=== PATIENT | male | born 1965 | race Caucasian/White ===

== ENCOUNTER 2024-01-16 02:34 | Emergency (ER) | payer OTHER, SELFPAY ==
[2024-01-16 02:49] VITALS: BP 138/91
[2024-01-16] MEDS: DUONEB 3 ML INH (03:09)
[2024-01-16 03:22] VITALS: BMI 28.5
--- NOTE | 2024-01-16 03:52 | ED.GENMED ---
History of Present Illness
General
Chief Complaint: Breathing Problem
Source: patient
Exam Limitations: none
Time Seen by Provider: 01/16/24 03:44
History of Present Illness
History of Present Illness:
This is a 58 year old male that comes in with c/o asthma attack. States that he ran out of his albuterol inhaler and his Advair. States that they told him he has to use the generic of Advair but there is no generic. States that he felt SOB and was
wheezing. States that he also felt a little nauseated due to the mucous. Denies any fever, chills, chest pain, abd pain, vomiting, diarrhea, headache, dizziness, urinary burning.
Past History
Past History
ED Past Medical History: Asthma, HTN, Hypercholesterolemia and NIDDM
ED Past Surgical History: Appendectomy
Social History
Tobacco: Smoker
Alcohol: Occasional
Personal:
Living: with family
Employment: Employed
Family History
Family History: Negative Hypertension or CAD
Review of Systems
Review of Systems
All Other Systems: ROS reviewed and negative except as documented in HPI and ROS
Constitutional: Reports no symptoms; Denies fever or chills
EENT: Reports no symptoms
Respiratory: Reports trouble breathing (Wheezing); Denies cough
Cardiac: Reports no symptoms
ABD/GI: Reports nausea; Denies abdominal pain, vomiting or diarrhea
: Denies dysuria, frequency or urgency
Musculoskeletal: Reports no symptoms
Skin: Reports no symptoms
Neurological: Reports no symptoms; Denies dizzy or headache
Psychiatric: Reports no symptoms
Phy Exam
General Physical Exam
General Presentation: no apparent distress
General age: appears stated age
General Skin: warm and dry
General Habitus: normal
General Mental: alert
General Hydration: appears well hydrated
ENT Exam
ENT Exam: TM's normal, pharynx normal and neck supple
Eye Exam
Eye Exam: EOMI
Cardiovascular Exam
Cardiovascular Exam: regular rate/rhythm, no murmur and normal peripheral pulses
Pulmonary Exam
Pulmonary Exam: no respiratory distress, no rales, chest non tender, no crackles, no rhonchi, no cough and other (Very faint exp wheezing)
Musculoskeletal Exam
Musculoskeletal Exam: full ROM
Skin Exam
Skin Exam: normal color, warm/dry, no rash and no petechia
Psychiatric Exam
Psychiatric Exam: normal mood/affect
Scores
Heart Failure Risk
Heart Failure Risk Score: Not Applicable
Course
Orders/Labs/Results
Orders:
Orders
01/16/24 03:07
Ipratropium/Albuterol Sulfate [Duoneb] 3 ml .ROUTE .STK-MED ONE
01/16/24 03:09
Ipratropium/Albuterol Sulfate [Duoneb] 3 ml INH R NOW ONE
Vital Signs
Initial and Last Documented VS:
Initial Vital Signs
Temp Pulse Resp BP Pulse Ox
97.5 F 70 20 138/91 93
01/16/24 02:49 01/16/24 02:49 01/16/24 02:49 01/16/24 02:49 01/16/24 02:49
Last Documented Vital Signs
Temp Pulse Resp BP Pulse Ox
97.5 F 70 20 138/91 97
01/16/24 02:49 01/16/24 02:49 01/16/24 02:49 01/16/24 02:49 01/16/24 03:15
MDM/Problems Addressed
Differential Diagnosis Includes:
Asthma attack
MDM/Problems Addressed:
This is a 58 year old male that comes in with c/o asthma attack. State that he was wheezing. States that he ran out of his Albuterol inhaler and his Advair inhaler.
Patient has a duo neb and is feeling much better. Will order his Albuterol inhaler and place patient on steroids to for the next 4 days. Encouraged patient to increase his water intake to 8-8oz glasses daily. Follow up with the family doctor. Return
with any concerns.
Chronic conditions affecting care: Asthma
Acute Exacerbation and/or Progression of Chronic Illness: Asthma
*Pulse Oximetry
Patient hypoxic: no
*EKG
Interpreted by ED Provider?: NA
Rate: EKG- N/A
*Psychometrician Interpretation
Rate: Psychometrician- N/A
*Critical Care Note
Total Time (30-74mins, 75-104mins- exclusive of procedures): Not Applicable
ED Attending Note
-
Portions of this chart may have been created with voice recognition software.� Occasional wrong word or��sound alike� substitutions may have occurred due to the inherent limitations of voice recognition software.
Discharge Plan
Departure
Patient Disposition: Home (Routine Discharge)
Date of Disposition: 01/16/24
Time of Disposition: 03:59
Patient with high blood pressure during this ER visit?: Yes
Condition: Good
Covid-19: Not Applicable
Discharge Problem:
Asthma attack
Instructions: Asthma, Adult (DC), BLOOD PRESSURE
Prescriptions:
New
albuterol sulfate 90 mcg/actuation HFA aerosol inhaler
2 inh inhalation Q4H PRN (Reason: shortness of breath or wheezing) Qty: 8.5 0RF
albuterol sulfate 2.5 mg /3 mL (0.083 %) solution for nebulization
2.5 mg inhalation Q4H PRN (Reason: shortness of breath or wheezing) Qty: 75 0RF
prednisone 20 mg tablet
40 mg PO DAILY Qty: 8 0RF
No Action
fluticasone propion-salmeterol [Advair Diskus] 1 DISK blister with device
1 puff inhalation BID Qty: 1 0RF
divalproex [Depakote] 250 MG tablet,delayed release (DR/EC)
500 mg PO DAILY Qty: 30 0RF
lisinopril-hydrochlorothiazide 1 EACH tablet
1 ea PO DAILY Qty: 30 0RF
albuterol sulfate [Ventolin HFA] 18 GM HFA aerosol inhaler
18 gm IH Q4HPRN PRN (Reason: wheezing) Qty: 1 0RF
escitalopram oxalate [Lexapro] 10 MG tablet
10 mg PO DAILY Qty: 30 0RF
ezetimibe-simvastatin [Vytorin 10-40] 1 EACH tablet
1 ea PO DAILY Qty: 30 0RF
Referrals:
Vandana Arteaga CRNP [Family Provider] - Follow up in 2-3 days
Activity Restrictions/Additional Instructions:
As discussed, you have been given a nebulizer that you can use every 4 hours for wheezing and shortness of breath as needed. You also have been started on a steroid to help decrease the inflammation. Please increase your water intake to 8-8oz
glasses daily. You have also had a third prescription sent for an albuterol inhaler. You may use 2 puffs every 4 hours as needed for wheezing or shortness of breath. YOU NEED TO STOP SMOKING. Follow up with the family doctor on Thursday for further
evaluation. IF YOU HAVE INCREASED SHORTNESS OF BREATH, OR YOU HAVE ANY OTHER CONCERNS PLEASE RETURN TO THE EMERGENCY ROOM.
Interventions
Interventions:
*Risk Screen - Suicide Last Done: 01/16/24 02:49
*General Assessment Last Done: 01/16/24 02:49
*Neglect/Abuse Screening Last Done: 01/16/24 02:49
ED- Fall Risk Assessment Last Done: 01/16/24 02:49
*ED COVID-19 Vaccine History Last Done: 01/16/24 02:49
ED- Cardiac Assessment Last Done: 01/16/24 03:13
ED- Pulmonary Assessment Last Done: 01/16/24 03:13
Discharge Date and Time
Print Language: GABONESE
[2024-01-16] MEDS: DELTASONE 50 MG PO (03:55)
--- NOTE | 2024-01-18 10:48 | CM ---
CM faxed patient's nebulizer packet (facesheet, med necessity and order form) to [facility]. Received an 'ok' confirmation that fax was sent successfully.
== END 2024-01-16 04:13 | disposition home or self-care (01) ==
LOC: EMR 02:34
PROVIDERS: EMERGENCY PHYSICIAN Emergency Medicine; FAMILY PHYSICIAN Nurse Practitioner Family
DX: J45.909 Unspecified asthma, uncomplicated (principal); I10 Essential (primary) hypertension; F17.200 Nicotine dependence, unspecified, uncomplicated
CPT/HCPCS: 99283; 94640